=== PATIENT | male | born 1930 | race Hispanic/Latino ===

== ENCOUNTER 2017-05-08 10:49 | Outpatient (CLI) | payer OTHER ==
[2017-05-08 12:05] LABS: Hematocrit 48.8 % (42.0-52.0); Mean Platelet Volume 7.9 fL (7.4-10.4); Red Blood Cell (RBC) Count 5.24 mill/uL (4.70-6.10); White Blood Cell (WBC) Count 7.8 thou/uL (4.8-10.8)
[2017-05-08 12:14] LABS: PTT 41.4 SEC (22.9-36.1); Prothrombin Time 16.1 SEC (12.0-14.7)
[2017-05-08 12:36] LABS: ALT (SGPT) 11 U/L (8-55); AST (SGOT) 15 U/L (5-34); Alkaline Phosphatase 96 U/L (40-150); Anion Gap 11 mmol/L (10-20); BUN (Urea Nitrogen) 19 mg/dL (8.4-25.7); Bilirubin, Total 0.7 mg/dL (0.2-1.2); Calc. Creatinine Clearance 0 mL/min (70-130); Calcium 9.4 mg/dL (7.8-10.44); Carbon Dioxide 28 mmol/L (23-31); Chloride 103 mmol/L (98-107); Estimated GFR-MDRD 71; Globulin 3.1 g/dL (2.4-3.5); Protein, Total 7.3 g/dL (5.8-8.1)
== END 2017-05-08 10:50 | disposition home or self-care (01) ==
LOC: LABBT 10:49
PROVIDERS: ATTEND Internal Medicine Cardiovascular Disease
DX: Z01.818 Encounter for other preprocedural examination (principal); R07.9 Chest pain, unspecified
CPT/HCPCS: 80053; 85027; 85610; 85730

== ENCOUNTER 2017-05-11 05:49 | Inpatient (IN) | payer OTHER ==
[2017-05-11] MEDS ORDERED: Fentanyl 100 MCG/2 ML VIAL ONE (09:24)
[2017-05-11] MEDS ORDERED: hydrALAZINE 20 MG/ML VIAL ONE (09:36)
[2017-05-11] MEDS ORDERED: Iopamidol 370 76% 100 ML VIAL ONE (13:20)
[2017-05-11] MEDS ORDERED: Acetaminophen ER (8hr) 650 MG TAB PO PRN (14:31)
[2017-05-11] MEDS ORDERED: Dicyclomine 20 MG TAB PO PRN (14:32)
[2017-05-11] MEDS ORDERED: Polyethylene Glycol OPTH DROP 15 ML BOT EA EYE PRN (14:33)
[2017-05-11] MEDS ORDERED: Acetaminophen/Codeine 30-300mg Tablet PO PRN ×2 (14:35)
[2017-05-11] MEDS ORDERED: Nitroglycerin 0.4 MG TAB (25 Tab Bottle) SL PRN (14:35)
[2017-05-11] MEDS ORDERED: Sodium Chloride 0.9% 1,000 ML IV SCH (14:35)
[2017-05-11] MEDS ORDERED: hydrALAZINE 20 MG/ML VIAL SLOW IVP SCH (15:15)
[2017-05-11] MEDS ORDERED: Lisinopril 20 MG TAB PO SCH (15:30)
[2017-05-11] MEDS ORDERED: FLU VACC TS2017-18 (>65YR) 0.5 ML SYRINGE IM ONE (17:15)
[2017-05-11] MEDS ORDERED: hydrALAZINE 20 MG/ML VIAL SLOW IVP PRN (19:00)
[2017-05-11] MEDS: Carvedilol 25 MG TAB PO SCH (20:22)
[2017-05-11] MEDS ORDERED: Atorvastatin Calcium 40 MG TAB PO SCH (21:00)
[2017-05-12] MEDS: Carvedilol 25 MG TAB PO SCH (07:53)
[2017-05-12] MEDS ORDERED: Allopurinol 300 MG TAB PO SCH (09:00)
[2017-05-12] MEDS ORDERED: Lisinopril 20 MG TAB PO SCH (09:00)
[2017-05-12] MEDS ORDERED: Furosemide 20 MG TAB PO SCH (09:00)
[2017-05-12 09:20] VITALS: BMI 27.5
--- NOTE | 2017-05-12 12:16 | DIS ---
DATE OF ADMISSION: 05/11/2017 DATE OF DISCHARGE: 05/12/2017 DISCHARGING PHYSICIAN: Dr. Crow Syed. PRIMARY DIAGNOSIS: Angina. SUMMARY: Mr. Kyle is an 86-year-old white gentleman who came to the outpatient catheter ization lab for evaluation of ongoing chest pain. Heart catheterization and vein graft study was pe rformed and medical therapy was opted. We had to leave his sheath in place for 24 hours before bein g able to pull given he had received a dose of Eliquis that morning that was not relayed by him and we only found out because his blood seemed very thin during the procedure. He did well. The sheath was pulled out this morning after 24 hours of holding the Eliquis and hemostasis was achieved witho ut problems. He walked around and looks fine. He will be discharged home in a stable condition wit h his current outpatient regimen. No changes to his medications. FOLLOWUP APPOINTMENTS: In 2 weeks with myself in the office. Over 30 minutes were spent at bedside counseling for discharge. He will restart his Eliquis on Sund ay.
[2017-05-12 12:57] VITALS: BP 131/61
[2017-05-12 12:58] VITALS: TEMP 98.3
--- NOTE | 2017-05-14 15:56 | EKG ---
Test Reason : PREOP Blood Pressure : / mmHG Vent. Rate : 065 BPM Atrial Rate : 065 BPM P-R Int : 164 ms QRS Dur : 140 ms QT Int : 474 ms P-R-T Axes : 027 -18 -03 degrees QTc Int : 492 ms Normal sinus rhythm Right bundle branch block Inferior infarct , age undetermined cannot be excluded Nonspecific T wave abnormality Abnormal ECG Confirmed by BRAEDEN GUSTAFSON ([id number]) on 05/14/2017 3:56:08 PM Referred By: DESTINY Confirmed By:BRAEDEN GUSTAFSON
== END 2017-05-12 13:35 | disposition home or self-care (01) | DRG 287 ==
LOC: CCL 05:49 → CCU 14:52
PROVIDERS: ADMIT Internal Medicine Cardiovascular Disease; ATTEND Internal Medicine Cardiovascular Disease
PROC: 4A023N7 Measurement of Cardiac Sampling and Pressure, Left Heart, Percutaneous Approach (ICD-10-PCS; principal; 2017-05-11)
PROC: B2111ZZ Fluoroscopy of Multiple Coronary Arteries using Low Osmolar Contrast (ICD-10-PCS; 2017-05-11)
PROC: B2151ZZ Fluoroscopy of Left Heart using Low Osmolar Contrast (ICD-10-PCS; 2017-05-11)
DX: I25.110 Atherosclerotic heart disease of native coronary artery with unstable angina pectoris (principal); Z95.1 Presence of aortocoronary bypass graft; I10 Essential (primary) hypertension; Z87.442 Personal history of urinary calculi
CPT/HCPCS: 80061; 93005; 93010; 93459; 93798; A4216; C1760; C1769; J0360; J1644; J3010